=== PATIENT | female | born 2005 | race Hispanic/Latino ===

== ENCOUNTER 2023-03-04 08:00 | Day surgery (SDC) | payer OTHER, SELFPAY ==
[2023-03-04] MEDS ORDERED: Piperacillin/Tazobactam 3.375 GM VIAL ONE (10:33)
[2023-03-04] MEDS ORDERED: Midazolam HCl 2 mg/2 ml Vial ONE (10:33)
[2023-03-04] MEDS ORDERED: Sodium Chloride 0.9% 100 ML ONE (10:34)
[2023-03-04] MEDS ORDERED: fentaNYL PF 100 MCG/2 ML SYRINGE ONE (10:35)
[2023-03-04] MEDS ORDERED: SUGAMMADEX SODIUM 200 MG/2 ML VIAL ONE (10:35)
[2023-03-04] MEDS ORDERED: Ondansetron ODT 8 MG TAB ONE ×2 (12:38→12:40)
[2023-03-04] MEDS ORDERED: Ondansetron PF 4 MG/2 ML Vial ONE (12:51)
[2023-03-04] MEDS ORDERED: HYDROcodone/Acetaminophen 5/325 mg Tablet ONE (14:45)
[2023-03-04] MEDS ORDERED: Ondansetron ODT 4 MG TAB ONE (15:29)
== END 2023-03-04 15:32 | disposition home or self-care (01) ==
LOC: SDC 08:00
PROVIDERS: ATTEND Surgery
PROC: 0DTJ4ZZ Resection of Appendix, Percutaneous Endoscopic Approach (ICD-10-PCS; principal; 2023-03-04)
DX: K35.32 Acute appendicitis with perforation, localized peritonitis, and gangrene, without abscess (principal); F17.210 Nicotine dependence, cigarettes, uncomplicated; Z98.890 Other specified postprocedural states; Z79.899 Other long term (current) drug therapy
CPT/HCPCS: 88304; A4314; A4649; C1776; J2250; J2405; J2543; J3490; Q0162